=== PATIENT | female | born 2000 | race Hispanic/Latino ===

== ENCOUNTER 2024-10-16 12:24 | Emergency (ER) | payer BC, MEDICAID, SELFPAY ==
[2024-10-16 13:49] LABS: #Basophils 0.03 10x3/uL (0.0-0.2); #Eosinophils 0.03 10x3/uL (0.0-0.5); #Monocytes 0.33 10x3/uL (0.0-1.1); #Neutrophils 5.00 10x3/uL (1.5-8.4); %Basophils 0.4 % (0.0-2.0); %Eosinophils 0.4 % (0.0-6.0); %Lymphocytes 24.3 % (18.0-47.0); %Monocytes 4.6 % (0.0-10.0); %Neutrophils 69.9 % (40.0-75.0); Hematocrit 38.3 % (34.9-44.5); Hemoglobin 12.5 g/dL (12.0-15.5); Mean Corpuscular Hemoglobin 30.0 pg (27.0-33.0); Mean Corpuscular Volume 92.1 fL (81.6-98.3); Platelet Count 249 10x3/uL (150-450); Red Blood Cell (RBC) Count 4.16 10x6/uL (3.90-5.03); White Blood Cell (WBC) Count 7.16 10x3/uL (3.5-10.5)
[2024-10-16 13:51] LABS: BHCG - Serum Negative (NEGATIVE); Pregs Control Bar Appear? YES (CONTROL BAR)
[2024-10-16 13:52] LABS: Pregs Control Background? CLEAR/WHITE (CLR/WHITE)
[2024-10-16 13:55] LABS: ALT (SGPT) 12 U/L (Less than 34); AST (SGOT) 16 U/L (11-34); Albumin 4.5 g/dL (3.1-4.5); Alkaline Phosphatase 48 U/L (40-110); Anion Gap 11 mmol/L (10-20); BUN (Urea Nitrogen) 9 mg/dL (7.0-18.7); Bilirubin, Total 0.4 mg/dL (0.3-1.2); Calc. Creatinine Clearance 0 mL/min (70-130); Calcium 9.0 mg/dL (7.8-10.44); Carbon Dioxide 27 mmol/L (22-29); Chloride 108 mmol/L (98-107); Globulin 3.2 g/dL (2.4-3.5); Glucose 103 mg/dL (70-105); Potassium 3.7 mmol/L (3.5-5.1); Sodium 142 mmol/L (136-145)
[2024-10-16] MEDS ORDERED: diphenhydrAMINE 50 MG/ML VIAL ONE (13:58)
[2024-10-16] MEDS ORDERED: Prochlorperazine 10 MG/2 ML VIAL ONE (13:58)
== END 2024-10-16 14:57 | disposition home or self-care (01) ==
LOC: CSHERS 12:24
DX: G43.919 Migraine, unspecified, intractable, without status migrainosus (principal)
CPT/HCPCS: 80053; 84703; 85025; 96365; 96375; J0780; J1200